=== PATIENT | male | born 1980 | race Caucasian/White ===

== ENCOUNTER 2021-07-02 08:51 | Outpatient (CLI) | payer OTHER, BC, SELFPAY ==
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
== END 2021-07-02 08:52 | disposition home or self-care (01) ==
LOC: ANHIMG 08:55
PROVIDERS: PCP Internal Medicine; Visit Provider Internal Medicine
DX: S09.93XA Unspecified injury of face, initial encounter (principal); X58.XXXA Exposure to other specified factors, initial encounter; Y09 Assault by unspecified means
CPT/HCPCS: 70160

== ENCOUNTER 2021-07-16 08:42 | Outpatient (CLI) | payer OTHER, BC, SELFPAY ==
--- NOTE | ~2021-07-16 | XR_ITS ---
EXAMINATION:XR_[id number]_CR DATE: 07/16/2021 09:13 INDICATION: Neck pain TECHNIQUE: 06/12/2014 COMPARISON: None FINDINGS: There are 2 mm of anterolisthesis of C4 on C5. The odontoid is intact. No fracture is ident ified. The vertebral body heights are maintained. There is mild loss of intervertebral disc space hei ght in the lower lumbar spine. Mild facet and uncovertebral joint osteoarthritis is also noted. Small degenerative osteophytes project from the anterior endplates of multiple vertebral bodies. Preverteb ral soft tissues are normal. IMPRESSION: 1. Mild cervical spondylosis without acute findings. Reviewed, dictated and finalized at location B.
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
[2021-07-16 09:20] LABS: Estimated Glomerular Filt Rate > 60
== END 2021-07-16 08:43 | disposition home or self-care (01) ==
PROVIDERS: PCP Internal Medicine; Visit Provider Nurse Practitioner
DX: S09.90XA Unspecified injury of head, initial encounter (principal); X58.XXXA Exposure to other specified factors, initial encounter; M47.892 Other spondylosis, cervical region
CPT/HCPCS: 70470; 72040; Q9967

== ENCOUNTER 2024-07-10 08:09 | Outpatient (CLI) | payer BC, SELFPAY ==
--- NOTE | 2024-08-01 09:13 | P.SLEEP_ITS ---
Sleep Study Date of Study: 07/10/24 Ordering Provider: Rashida Katz MD Interpreting Physician: Lina Shields DO Sleep Study Type: Split Polysomnogram Height: 1.8 m Weight: 130.181 kg Body Mass Index: 40.0 Neck Circumference (inches): 18 [place]: 13 Reason for Sleep Study Dream enactment behavior Sleep History The patient is a 43-year-old male that had a sleep study ordered by his learning coach for evaluation of sleep apnea and dream enactment behavior. He was previously diagnosed with sleep apnea and was using CPAP but had difficulty. The patient constantly awakens from sleep short of breath. He occasionally awakens at night with heartburn, belching or cough. He constantly snores and is rarely loud enough that others complain. He frequently has trouble sleeping when he has a cold. He constantly wakes up gasping for air throughout the night. He occasionally has breathing problems at night observed by himself or others. He frequently sweats excessively at night. He frequently has heart palpitations or irregular heartbeats during the night. He constantly falls asleep during the day but never while driving. He denies cataplexy. He constantly has trouble at school or work due to sleepiness. He rarely feels unable to move while waking up or falling asleep. He frequently experiences vivid dreamlike scenes upon awakening or falling asleep. He constantly feels afraid of going to sleep. He constantly has nightmares. He occasionally remembers his dreams. He occasionally has thoughts racing through his mind. He frequently feels sad, depressed and anxious. He occasionally has muscular tension. He occasionally notices parts of his body jerk. He occasionally kicks during the night. He rarely has crawling and aching feelings in his legs but occasionally has leg pain during the night. He frequently grinds his teeth during sleep and occasionally awakens morning jaw pain. He is frequently bothered by pain during the day and frequently awakened by pain during the nigh t. He frequently wakes up feeling stiff in the morning. He frequently wakes up with sore or achy muscles. He constantly wakes up with pain in the neck, spine and other joints. He goes to bed between 9-11 p.m. on both weekdays and weekends. It takes him 45 minutes to fall asleep. He wakes up 4 times throughout the night for unknown reasons and is able to fall back asleep within a few minutes. He wakes up at 6:00 a.m. on weekdays and 8:00 a.m. on the weekends. He currently lives with his and child. He denies consuming any caffeinated beverages within 2 hours of bedtime. He denies engaging in physical exercise before bedtime. He will watch television before falling asleep. He will take naps in afternoon or the evening but they are not refreshing. He consumes 4 caffeinated sodas per day. He denies tobacco, alcohol or recreational drug use. [facility] Past Medical History Medical History Attention-deficit hyperactivity disorder, unspecified type Bleeding hemorrhoid COVID-19 Essential (primary) hypertension Gastro-esophageal reflux disease without esophagitis Head trauma Idiopathic chronic gout, unspecified site, without tophus (tophi) Mixed hyperlipidemia Morbid obesity Nonalcoholic steatohepatitis (POPE) Obstructive sleep apnea Rectal bleeding Type 2 diabetes mellitus without complications Family History Family History Mother Patient's mother is in good health Sibling Patient's brother is in good health Father Family history of lung cancer Patient's father is Social History Social History Smoking status: Never smoker Second hand tobacco smoke exposure: No Alcohol intake: current Alcohol use details: Social Substance use: never Substance use type: does not use Lack of Transportation: No Lack of Food: Never True Current Housing: I Have Housing Concerned About Future Housing: No Difficulty Paying Gas/Electric Bills: No Difficulty Paying for Meds: No Currently Unemployed: No Education: Master's Degree or Higher Difficulty w/ Childcare or Family Care: No Medications Home Medications Medication Instructions Recorded Confirmed Type blood-glucose meter ([employer] #1 ea 04/02/21 04/16/24 Rx Ultra2 Meter kit) blood sugar diagnostic #100 ea 04/07/21 04/16/24 Rx lancets 30 gauge ([employer] #100 ea 04/07/21 04/16/24 Rx Lancets) vortioxetine 20 mg tablet 20 mg PO DAILY #30 tabs 09/01/22 04/16/24 Rx (Trintellix) prazosin 1 mg capsule 4 mg PO QPM 01/14/23 04/16/24 History celecoxib 200 mg capsule (Celebrex) 200 mg PO DAILY #60 caps 02/25/23 04/16/24 Rx clotrimazole 1 % topical cream 1 applic topical Q12H PRN 08/02/23 04/16/24 History indomethacin 50 mg capsule 50 mg PO TID PRN 08/02/23 04/16/24 History ondansetron 4 mg disintegrating 4 mg PO Q8H PRN nausea and 08/02/23 04/16/24 Rx tablet vomiting #30 tabs diazepam 2 mg tablet (Valium) 2 mg PO QHS PRN vertigo #30 tabs 03/13/24 04/16/24 Rx methylphenidate HCl 18 mg 18 mg PO QAM 03/13/24 04/16/24 History tablet,extended release 24 hr (Concerta) atorvastatin 20 mg tablet See Rx Instructions .Route 05/17/24 Rx .COMPLEX #90 tabs cyclobenzaprine 10 mg tablet See Rx Instructions .Route 06/08/24 Rx .COMPLEX #90 tabs pantoprazole 40 mg tablet,delayed See Rx Instructions .Route 06/12/24 Rx release .COMPLEX #90 tabs allopurinol 100 mg tablet See Rx Instructions .Route 06/21/24 Rx .COMPLEX #90 tabs allopurinol 300 mg tablet 300 mg PO DAILY #90 tabs 06/21/24 Rx amitriptyline 10 mg tablet 10 mg PO QHS #30 tabs 06/21/24 Rx atenolol 25 mg tablet See Rx Instructions .Route 06/21/24 Rx .COMPLEX #180 tabs tirzepatide 15 mg/0.5 mL 15 mg (0.5 mL) subcut WEEKLY #6 mL 07/19/24 Rx subcutaneous pen injector (Swapnil) cyclobenzaprine 10 mg tablet See Rx Instructions .Route 08/06/24 08/06/24 Rx .COMPLEX #90 tabs diazepam 2 mg tablet (Valium) 2 mg PO QHS PRN vertigo #30 tabs 08/06/24 08/06/24 Rx empagliflozin 25 mg tablet 25 mg PO DAILY #90 tabs 08/06/24 08/06/24 Rx (Jardiance) erenumab-aooe 140 mg/mL 140 mg subcut MONTHLY #1 mL 08/06/24 08/06/24 Rx subcutaneous auto-injector (Aimovig Autoinjector) rimegepant 75 mg disintegrating 75 mg PO DAILY PRN migraine 08/06/24 08/06/24 Rx tablet (Nurtec ODT) headache #14 tabs Sleep Procedure A full night polysomnogram using the [employer] multi-channel system recorded the standard physiologic parameters including EEG, EOG, submentalis EMG, anterior tibialis EMG, EKG, body position, nasal and oral airflow using nasal pressure sensor and thermistor.? Respiratory parameters of chest and abdominal movements were recorded with Respiratory Inductance Plethysmography belts. Oxygen saturation was recorded by pulse oximetry. Video monitoring was also performed. Sleep stages, periodic limb movements, and EEG arousals were scored in 30 second epochs according to the criteria of the AASM Scoring Manual. The Apnea-Hypopnea Index was calculated using CMS guidelines for definition of hypopnea with 4% O2 desaturations while scoring respiratory events. Sleep Architecture During the diagnostic portion of the study, the total recording time was 322.6 minutes. The total sleep time was 243.0 minutes. Sleep latency was 17.8 minutes.? REM latency was 461.5 minutes. Sleep Efficiency was 75.3%. The patient had 33 awakenings for an awakening index of 8.1. Wake after sleep onset time was 62.0 minutes. The patient spent 65.5 minutes, 27.0% of total sleep time in Stage N1. The patient spent 141.5 minutes, 58.2% in Stage N2. The patient spent 16.5 minutes, 6.8% in Stage N3. The patient spent 19.5 minutes, 8.0% in Stage REM sleep. At 12:38:03 AM the patient was placed on PAP treatment and was titrated at pressures ranging from 5 cm H20 up to 7 cm H20. During the treatment portion of the study, the total recording time was 196.0 minutes.? The total sleep time was 111.0 minutes. Sleep latency was 20.5 minutes. REM sleep did not occur while the patient was on CPAP. Sleep Efficiency was 56.6%. Wake after Sleep Onset time was 64.5 minutes. The patient spent 23.5 minutes, 21.2% of total sleep time in Stage N1. The patient spent 87.5 minutes, 78.8% in Stage N2. The patient spent 0.0 minutes, 0.0% in Stage N3. The patient spent 0.0 minutes, 0.0% in Stage REM. REM without atonia was seen during this study. There was gross motor movement seen on video as well. Left upper extremity movement: Epochs 962, 983 Right upper extremity movement: Epochs 998, 1009 Bilateral leg movement: Epochs 961, 986, 998, 1009, 1034 Right lower extremity movement: Epochs 983, 984 Left lower extremity movement: Epochs 983 and 1035 Respiratory Analysis During the diagnostic portion of the study, the patient had 77 hypopneas, 2 obstructive apneas and 1 mixed apnea for an overall Apnea Hypopnea Index of 19.8 events per hour. The REM Apnea Hypopnea Index was 15.4. The NREM Apnea Hypopnea Index was 20.1. The patient had a Central Apnea Hypopnea Index of 0. There were 22 Respiratory Effort Related Arousals resulting in a RERA index of 5.4 events per hour. The Respiratory Disturbance Index is 25.2 events per hour. There was no evidence of Dax-Gutierrez Respirations. During the treatment portion of the study, the patient had 2 hypopneas for an overall Apnea Hypopnea Index of 1.1 events per hour. The REM Apnea Hypopnea Index was 0. The NREM Apnea Hypopnea Index was 1.1. The patient had a Central Apnea Hypopnea Index of 0. There was 1 Respiratory Effort Related Arousal resulting in a RERA index of 0.5 events per hour. The Respiratory Disturbance Index is 1.6 events per hour. There was no evidence of Dax-Gutierrez Respirations. The patient was started on CPAP 5 cm H2O and titrated to CPAP 7 cm H2O due to hypopneas. The patient was able to fall asleep starting on CPAP 5 cm H2O. The patient had difficulty breathing and took off the CPAP mask multiple times during the study. The CPAP was discontinued and the patient was not interested in trying BPAP. Arousals During the diagnostic portion of the study, there were a total of 163 arousals for an arousal index of 40.2.? There were 65 respiratory arousals for an index of 16.0. There were 23 periodic limb movement arousals for an index of 5.7.? There were 22 isolated limb movement arousals for an index of 5.4. There were 54 spontaneous arousals for an index of 13.3. During the treatment portion of the study, there were a total of 52 arousals for an index of 28.1.? There were 2 respiratory arousals for an index of 1.1. There were 12 periodic limb movement arousals for an index of 6.5.? There were 10 isolated limb movement arousals for an index of 5.4. There were 28 spontaneous arousals for an index of 15.1. Periodic Limb Movements During the diagnostic portion of the study, the patient had 52 isolated limb movements with an index of 12.8. The patient had 77 periodic limb movements with an index of 19.0. The patient had a total of 129 limb movements with a total limb movement index of 31.9. During the treatment portion of the study, the patient had 22 isolated limb movements with an index of 11.9. The patient had 21 periodic limb movements with an index of 11.4. The patient had a total of 43 limb movements with a total limb movement index of 23.2. Oximetry Data During the diagnostic portion of the study, the patient had an average oxygen saturation of 91% in wake with a minimum oxygen saturation of 83% and a maximum oxygen saturation of 96%. The patient had an average oxygen saturation of 90.2% in sleep with a minimum oxygen saturation of 82.0% and a maximum oxygen saturation of 95.0%. The patient had 93 oxygen desaturations resulting in an Oxygen Desaturation Index of 23.0. The patient spent 52.8 minutes, 16.4% of total sleep time with an oxygen saturation less than 88%. During the treatment portion of the study, the patient had an average oxygen saturation of 92.6% in wake with a minimum oxygen saturation of 86.0% and a maximum oxygen saturation of 96.0%. The patient had an average oxygen saturation of 91.4% in sleep with a minimum oxygen saturation of 88.0% and a maximum oxygen saturation of 95.0%. The patient had 2 oxygen desaturations resulting in an Oxygen Desaturation Index of 1.1. The patient spent 1.1 minutes, 0.6% of total sleep time with an oxygen saturation less than 88%. Snoring Profile Mild snoring was present in the baseline portion of the study. Cardiac Profile The EKG lead showed normal sinus rhythm. No arrhythmias or PVCs were seen. During the diagnostic portion of the study, the average pulse rate was 74.6 bpm.? The minimum pulse rate was 58.0 bpm. The maximum pulse rate was 95.0 bpm. During the treatment portion of the study, the average pulse rate was 73.5 bpm.? The minimum pulse rate was 62.0 bpm. The maximum pulse rate was 93.0 bpm. EEG Profile No signs of seizure activity seen. Assessment and Plan Assessment and Plan (1) Obstructive sleep apnea: Code(s): G47.33 - Obstructive sleep apnea (adult) (pediatric) Status: Acute Assessment and Plan: In the baseline portion of the study, the patient had an overall AHI of 19.8 with desaturation down to 82%. This is consistent with moderate sleep apnea. The patient was started on CPAP 5 cm H2O and titrated to CPAP 7 cm H2O before C PAP was discontinued due to difficulty tolerating the pressure. The patient finished the remaining portion of the study without CPAP. Since the patient was unable to tolerate CPAP, I recommend that he consider a mandibular advancement device as an alternative treatment option. (2) REM behavioral disorder: Code(s): G47.52 - REM sleep behavior disorder Status: Acute Assessment and Plan: The patient had REM without atonia as well as gross motor movement seen on video during this study. The findings on this study in addition to his clinical history is consistent with REM Behavioral Disorder. The patient needs to be counseled that untreated sleep apnea can precipitate episodes of dream enactment behavior. Data The data obtained during this sleep study is adequate for interpretation. Certification This sleep study has been reviewed by a board certified sleep medicine physician.
[2024-08-06 14:58] VITALS: BMI 40.0
== END 2024-07-11 06:34 | disposition home or self-care (01) ==
PROVIDERS: PCP Family Medicine; Visit Provider Internal Medicine Critical Care Medicine
DX: G47.52 REM sleep behavior disorder (principal); G47.10 Hypersomnia, unspecified
CPT/HCPCS: 95811